=== PATIENT | male | born 1975 | race Caucasian/White ===

== ENCOUNTER 2018-10-02 12:46 | Emergency (ER) | payer MEDICARE ==
[~2018-10-02] VITALS: Ht 175.3 cm; Wt 91.0 kg
--- NOTE | 2018-10-02 13:00 | NUR ---
Pt BIB [facility] for sudden onset of SOB. Denies CP. Pt has a history of PEs. Pt is alert, oriented, with NAD. Pt was 92% RA and was puto on 2L oxygen and O2 Sat increased to 98%. BP: 114/78, NS 70, FS 138. Pt was given 100 ml NS. Pt is connected to the monitor. Call light within reach. at bedside.
[2018-10-02] MEDS ORDERED: LISI40TA PO (13:06)
[2018-10-02] MEDS ORDERED: WARF10TA43 PO (13:06)
[2018-10-02] MEDS ORDERED: FURO-93 PO (13:06)
[2018-10-02] MEDS ORDERED: CHOL4POW3 PO (13:06)
[2018-10-02 14:03] LABS: BASOPHILS % (AUTO) 0 % (0-1); EOSINOPHILS # (AUTO) 0.06 x10^3/uL (0-0.4); EOSINOPHILS % (AUTO) 1 % (1-7); LYMPHOCYTES # (AUTO) 1.22 x10^3/uL (1-3.4); LYMPHOCYTES % (AUTO) 11 % (22-44); MD NO; MEAN CORPUSCULAR HEMOGLOBIN 30.1 pg (27.5-34.5); MEAN CORPUSCULAR HGB CONC 33.3 g/dL (33.2-36.2); MEAN CORPUSCULAR VOLUME 90.2 fL (81-97); MEAN PLATELET VOLUME 6.6 fL (7.4-10.4); MONOCYTES # (AUTO) 0.54 x10^3/uL (0.2-0.8); MONOCYTES % (AUTO) 5 % (2-9); NEUTROPHILS # (AUTO) 9.74 x10^3/uL (1.8-6.8); NEUTROPHILS % (AUTO) 84 % (42-75); PLATELET COUNT 355 x10^3/uL (130-400); RED CELL DISTRIBUTION WIDTH 14.8 % (9.4-14.8)
[2018-10-02 14:12] LABS: PROTHROMBIN TIME 20.6 Seconds (9.6-11.5)
[2018-10-02 14:14] LABS: ALBUMIN 1.1 g/dL (3.4-5.0); ANION GAP 3 mmol/L (5-15); CALCIUM 7.4 mg/dL (8.5-10.1); CHLORIDE 113 mmol/L (98-107); CREATININE 1.49 mg/dL (0.7-1.3)
--- NOTE | 2018-10-02 14:15 | NUR ---
TASK RN: FIRST CONTACT WITH PT. PT RESTING ON GURNEY. NO ACUTE DISTRESS NOTED. NO NEEDS REQUESTED AT THIS TIME. FRIEND BEDSIDE.
[2018-10-02] MEDS ORDERED: SODIUM CHLORIDE 0.9% 1,000 ML IV ONE (14:42)
--- NOTE | 2018-10-02 14:55 | NUR ---
Pt resting in bed, talking with staff, respirations equal and non labored. NAD. Pt is connected to the monitor. Call light within reach.
--- NOTE | 2018-10-02 15:54 | NUR ---
PT IS RESTING IN BED, TALKING WITH VISITORS, RESPIRATIONS EQUAL AND NON LABORED. NAD. PT IS CONNECTED TO THE MONITOR. CALL LIGHT WITHIN REACH. LAB AT BEDSIDE.
[2018-10-02 16:11] LABS: ALBUMIN 1.1 g/dL (3.4-5.0); ANION GAP 6 mmol/L (5-15); CALCIUM 7.6 mg/dL (8.5-10.1); CHLORIDE 113 mmol/L (98-107); CREATININE 1.32 mg/dL (0.7-1.3)
[2018-10-02 17:13] VITALS: BP 117/77
--- NOTE | 2018-10-02 17:22 | NUR ---
Patient given discharge instructions and they have confirmed that they understand the instructions. Patient ambulatory with steady gait.
== END 2018-10-02 17:25 | disposition home or self-care (01) ==
LOC: ED 14:44
DX: J20.9 Acute bronchitis, unspecified (principal); E86.0 Dehydration; B34.9 Viral infection, unspecified; Z86.711 Personal history of pulmonary embolism
CPT/HCPCS: 36415; 71045; 80048; 82040; 85025; 85610; 93005; 96360; 99284; J7030